=== PATIENT | female | born 1940 ===

== ENCOUNTER 2017-04-23 02:18 | Emergency (ER) | payer OTHER ==
[2017-04-23 02:38] VITALS: PULSE 58; RESP 18; TEMP 98.5; O2SAT 98
[2017-04-23] MEDS ORDERED: Sodium Chloride 0.9% 1,000 ML IV STA (02:41)
[2017-04-23] MEDS ORDERED: Iohexol 240 (50 ml) PO ONE (02:41)
--- NOTE | 2017-04-23 02:50 | ED PDOC ---
HPI: Abdomen Time Seen by Provider: 04/23/17 02:23 Chief Complaint (Nursing): Abdominal Pain Chief Complaint (Provider): Abdominal Pain History Per: Patient, Family History/Exam Limitations: no limitations Onset/Duration Of Symptoms: Days (1 day) Current Symptoms Are (Timing): Still Present Location Of Pain/Discomfort: Diffuse Associated Symptoms: Nausea, Vomiting, Constipation. denies: Fever, Chills, Diarrhea, Chest Pain Last Bowel Movement: Days Ago (2 days ago) Additional History Per: Patient, Family Additional Complaint(s): 76 year old female, accompanied by family presents to the ED with abdominal pain [id number], and a past medical history of hypertension. (+) vomiting, nausea , constipation. (-) fevers, chills, shortness of breath, chest pain PCP: Manuela Monreal MD Past Medical History Reviewed: Historical Data, Nursing Documentation, Vital Signs Vital Signs: Last Vital Signs Temp 98.5 F 04/23/17 02:32 Pulse 58 L 04/23/17 02:32 Resp 18 04/23/17 02:32 BP 127/44 L 04/23/17 02:32 Pulse Ox 98 04/23/17 06:28 - Medical History PMH: HTN - Surgical History Surgical History: Cholecystectomy - Family History Family History: States: No Known Family Hx - Living Arrangements Living Arrangements: With Family - Allergies Allergies/Adverse Reactions: Allergies Allergy/AdvReac Type Severity Reaction Status Date / Time No Known Allergies Allergy Verified 04/23/17 02:32 Review of Systems ROS Statement: Except As Marked, All Systems Reviewed And Found Negative Constitutional: Negative for: Fever, Chills Cardiovascular: Negative for: Chest Pain Respiratory: Negative for: Shortness of Breath Gastrointestinal: Positive for: Nausea, Vomiting (multiple episodes of vomiting ; non bilious, non bloody), Abdominal Pain, Constipation (no bowel movement in 2 days) Psych: Negative for: Suicidal ideation Physical Exam - Reviewed Nursing Documentation Reviewed: Yes Vital Signs Reviewed: Yes - Physical Exam Appears: Positive for: Well, Non-toxic, No Acute Distress Head Exam: Positive for: ATRAUMATIC, NORMAL INSPECTION, NORMOCEPHALIC Skin: Positive for: Normal Color, Warm, DRY Eye Exam: Positive for: EOMI, Normal appearance, PERRL ENT: Positive for: Normal ENT Inspection Cardiovascular/Chest: Positive for: Regular Rate, Rhythm Respiratory: Positive for: CNT, Normal Breath Sounds Gastrointestinal/Abdominal: Positive for: Soft, Tenderness (minimal diffusive abdominal tenderness). Negative for: Distended Back: Positive for: Normal Inspection Extremity: Positive for: Normal ROM Neurologic/Psych: Positive for: Alert, Oriented - Laboratory Results Result Diagrams: 04/23/17 03:05 04/23/17 03:05 - ECG O2 Sat by Pulse Oximetry: 98 Medical Decision Making Medical Decision Making: Time: 222 Initial Impression: Possible Small Bowel Obstruction Initial Plan: --T&S --VBG Shock Panel --CT A/P PO & IV Contrast --Labs --Lipase --Chest X-Ray --Iohexol 50 ml PO --Toradol 15mg IVP --IV 250 mls/hr --Zofran Inj 4mg IVP --Urine Culture --Urinalysis -- --Reassess 0700 Patient will be signed out to Dr. Dietrich pending CT. Scribe Attestation: Documented by Bud Dudley acting as a scribe for David Abraham MD. Provider Scribe Attestation: All medical record entries made by the Scribe were at my direction and personally dictated by me. I have reviewed the chart and agree that the record accurately reflects my personal performance of the history, physical exam, medical decision making, and the department course for this patient. I have also personally directed, reviewed, and agree with the discharge instructions and disposition. Disposition - Clinical Impression Clinical Impression: Abdominal pain - Disposition Disposition: Transfer of Care Disposition Time: 07:00 Condition: STABLE Forms: [employer] (Divehi) Patient Signed Over To: Nivia Dietrich (at 0700) Handoff Comments: pending CT.
[2017-04-23 03:15] LABS: VENOUS BLOOD GAS PCO2 40 mmHg (40-60); VENOUS BLOOD PH 7.43 (7.32-7.43)
[2017-04-23 03:16] LABS: BASO # 0.1 K/uL (0.0-0.2); BASO % 0.8 % (0.0-2.0); EOS # 0.2 K/uL (0.0-0.7); EOS % 2.2 % (0.0-4.0); HEMATOCRIT 38.5 % (34.0-47.0); LYMPH # 2.1 K/uL (1.0-4.3); MEAN CELL VOLUME 93.3 fl (81.0-99.0); MEAN CORPUSCULAR HEMOGLOBIN 31.7 pg (27.0-31.0); MEAN PLATELET VOLUME 8.9 fl (7.2-11.7); MONO # 0.6 K/uL (0.0-0.8); MONO % 7.1 % (0.0-10.0); NEUT # 5.9 K/uL (1.8-7.0); NEUT % 65.9 % (50.0-75.0); NRBC % 0.1 % (0.0-0.0); RED CELL DISTRIBUTION WIDTH 12.8 % (11.5-14.5); WHITE BLOOD COUNT 8.9 K/uL (4.8-10.8)
[2017-04-23 03:26] LABS: BLOOD UREA NITROGEN 18 mg/dl (7-17); CALCIUM 9.2 mg/dL (8.4-10.2); CARBON DIOXIDE 24 mmol/L (22-30); CHLORIDE 103 mmol/L (98-107); GFR AFRICAN-AMERICAN > 60; GLUCOSE,RANDOM 104 mg/dL (65-105); LIPASE 640 U/L (23-300); POTASSIUM 4.4 MMOL/L (3.6-5.0); SODIUM 137 mmol/l (132-148)
[2017-04-23] MEDS ORDERED: Iohexol 240 (50 ml) ONE (04:00)
[2017-04-23] MEDS ORDERED: Iohexol 300 100 ML IJ ONE (06:17)
[2017-04-23] MEDS ORDERED: Sodium Chloride 0.9% 50 ML IV ONE (06:18)
[2017-04-23 07:05] LABS: RBC URINE 5 /hpf (0-3); URINE BACTERIA OCC (<OCC); URINE BILIRUBIN NEGATIVE (NEGATIVE); URINE BLOOD SMALL (NEGATIVE); URINE COLOR YELLOW (YELLOW); URINE GLUCOSE (UA) NEG (Normal); URINE KETONE NEGATIVE (NEGATIVE); URINE LEUKOCYTE ESTERASE TRACE Leu/uL (Negative); URINE PROTEIN NEGATIVE (NEGATIVE); URINE UROBILINOGEN 0.2-1.0 mg/dL (0.2-1.0); WBC URINE 1 /hpf (0-5)
--- NOTE | 2017-04-23 07:14 | ED PDOC ---
- Laboratory Results Result Diagrams: 04/23/17 03:05 04/23/17 03:05 - ECG O2 Sat by Pulse Oximetry: 98 (RA) Pulse Ox Interpretation: Normal Medical Decision Making Medical Decision Making: Receiving sign out: Patient signed out to me by Dr. Abraham at [address] AP, re-assessment and final disposition. Scribe Attestation: Documented by Jing Cesar acting as a scribe for Nivia Dietrich MD. Provider Attestation: All medical record entries made by the Scribe were at my direction and personally dictated by me. I have reviewed the chart and agree that the record accurately reflects my personal performance of the history, physical exam, medical decision making, and the department course for this patient. I have also personally directed, reviewed, and agree with the discharge instructions and disposition. Disposition Counseled Patient/Family Regarding: Studies Performed, Diagnosis, Need For Followup - Clinical Impression Clinical Impression: Abdominal pain - POA Present On Arrival: None - Disposition Referrals: [facility] [Outside] [facility] [Outside] Adryan Bolaños MD, PhD [Staff Provider] - Disposition: Routine/Home Disposition Time: 08:30 Condition: IMPROVED Additional Instructions: follow up with your primary doctor in 1-2 days return to the ED with any worsening or concerning symptoms Instructions: Abdominal Pain (ED) Forms: [facility] (Urdu) Print Language: LAO Progress Note - Review of Symptoms Events since last encounter: Time: 082 CT AP IMPRESSION: No acute intra-abdominal pelvic abnormality. Small hiatal hernia. Cholecystectomy. Patient reports improvement in symptoms; stable for discharge home.
--- NOTE | 2017-04-23 07:46 | CT ---
EXAM: CT Abdomen and Pelvis With Intravenous Contrast CLINICAL HISTORY: 76 years old, female; Pain; Abdominal pain; Generalized; Prior surgery; Surgery date: 6+ months; Surgery type: Gall bladder; Additional info: S/P ziggy, diff abd pain and vomiting, no bm in 2d TECHNIQUE: Axial computed tomography images of the abdomen and pelvis with intravenous contrast. All CT scans at this facility use one or more dose reduction techniques, viz.: automated exposure control; ma/kV adjustment per patient size (including targeted exams where dose is matched to indication; i.e. head); or iterative reconstruction technique. Coronal and sagittal reformatted images were created and reviewed. CONTRAST: 90 mL of [id number] administered intravenously. COMPARISON: No relevant prior studies available. FINDINGS: Lower thorax: Left lung base calcified granuloma. A small hiatal hernia is present. ABDOMEN: Liver: Unremarkable. No mass. Gallbladder and bile ducts: There has been a cholecystectomy.There is a mild, expected degree of intrahepatic and common bile duct dilation. Pancreas: Unremarkable. No mass. No ductal dilation. Spleen: Unremarkable. No splenomegaly. Adrenals: Unremarkable. No mass. Kidneys and ureters: Unremarkable. No solid mass. No hydronephrosis. Stomach and bowel: There is no wall thickening or pericolonic stranding to suggest colitis. No obstruction. Appendix: A normal appendix is identified. PELVIS: Bladder: Unremarkable. No mass. Reproductive: Unremarkable as visualized. ABDOMEN and PELVIS: Intraperitoneal space: Unremarkable. No free air. No significant fluid collection. Bones/joints: No acute fracture. No dislocation. Soft tissues: Unremarkable. Vasculature: Unremarkable. No abdominal aortic aneurysm. Lymph nodes: Unremarkable. No enlarged lymph nodes. IMPRESSION: No acute intra-abdominal pelvic abnormality. Small hiatal hernia. Cholecystectomy.
[2017-04-23 09:15] VITALS: BP 122/60
--- NOTE | 2017-04-23 12:46 | RAD ---
PROCEDURE: CHEST RADIOGRAPH, 1 VIEW HISTORY: Vomiting and abdominal pain. COMPARISON: None available. FINDINGS: LUNGS: Clear. PLEURA: No pneumothorax or pleural fluid seen. CARDIOVASCULAR: No radiographic findings to suggest acute or significant cardiovascular disease. OSSEOUS STRUCTURES: No significant abnormalities. VISUALIZED UPPER ABDOMEN: Normal. OTHER FINDINGS: None. IMPRESSION: No active disease. Concordant results with the preliminary interpretation rendered by the emergency department physician procedure.
== END 2017-04-23 09:08 | disposition home or self-care (01) ==
LOC: H.ER 02:18
DX: R10.9 Unspecified abdominal pain (principal); K59.00 Constipation, unspecified; I10 Essential (primary) hypertension
CPT/HCPCS: 71010; 74177; 80048; 81003; 82803; 83690; 85025; 87086; 87181; 96374; 96375; 99283; J1885; J2405; J2765; J7040; Q9966; Q9967